=== PATIENT | male | born 1990 | race Two or more races ===

== ENCOUNTER 2020-04-21 23:21 | Emergency (ER) | payer OTHER ==
[~2020-04-21] VITALS: Ht 180.3 cm; Wt 54.4 kg
[2020-04-22] MEDS ORDERED: CIPRO500 MG PO (06:22)
[2020-04-22] MEDS ORDERED: INTESTINEX680 M2 PO (06:22)
[2020-04-22] MEDS ORDERED: ONDANSETRON HCL4 MG PO (06:22)
[2020-04-22] MEDS ORDERED: PEPCID AC20 MG PO (06:22)
== END 2020-04-22 06:34 | disposition home or self-care (01) ==
LOC: ER 23:21
DX: K52.9 Noninfective gastroenteritis and colitis, unspecified (principal); B34.9 Viral infection, unspecified